=== PATIENT | male | born 1955 | race Caucasian/White ===

== ENCOUNTER 2018-04-29 01:22 | Inpatient (IN) | payer OTHER, MEDICAID ==
[~2018-04-29] VITALS: Ht 177.8 cm; Wt 72.6 kg
--- NOTE | 2018-04-29 02:12 | NUR ---
PT BIB [facility] 88 WITH A C/O DIZZINESS. PT WAS TRIAGED AND TAKEN TO ROOM #9. PT WAS ABLE TO AMBULATE FROM THE EMS GURNEY TO THE ER GURNEY. PT STOOD AT THE BEDSIDE WHILE I EMPTIED HIS GUARDADO BAG. APPROX 600 ML DARK URINE OUTPUT NOTED. PT REC'D WARM BLANKETS.
[2018-04-29] MEDS ORDERED: AMPICILLIN TRIHYDRATE 250 MG CAPSULE PO STA (02:13)
--- NOTE | 2018-04-29 02:13 | NUR ---
AMPICILLIAN NOT AVAILABLE PO IN OUR [facility]. AWARE AND ORDER CANCELLED. PT TOOK HIS OWN AMPICILLAN. DR. FRANKLIN AWARE.
--- NOTE | 2018-04-29 02:45 | NUR ---
PT REFUSED CT.
[2018-04-29] MEDS ORDERED: POTASSIUM CHLORIDE 20 MEQ TAB.PRT.SR PO ONE ×2 (03:23→03:31)
--- NOTE | 2018-04-29 03:25 | NUR ---
PT REC'D 325MG ASPIRIN PO AND ONLY 20 MEQ KCL PO. PT REFUSED THE OTHER [address] FRANKLIN IS AWARE.
[2018-04-29] MEDS ORDERED: ASPIRIN 325 MG TABLET ONE (03:31)
--- NOTE | 2018-04-29 03:42 | NUR ---
DR FRANKLIN AWARE THAT PT REFUSED CT.
[2018-04-29 03:53] LABS: BASOPHILS % (AUTO) 0.1 % (0.0-2.0); BILIRUBIN,DIRECT 0.1 mg/dL (0.0-0.2); BILIRUBIN,TOTAL 0.5 mg/dL (0.2-1.0); CALCIUM, SERUM 8.7 mg/dL (8.5-10.1); CREATININE 1.2 mg/dL (0.6-1.3); EOSINOPHILS % (AUTO) 3.1 % (0.0-6.0); HEMATOCRIT 42 % (39-51); HEMOGLOBIN 14.1 g/dL (13.5-17.5); LYMPHOCYTES # (AUTO) 0.6 /CMM (0.8-4.8); LYMPHOCYTES % (AUTO) 8.2 % (20.0-44.0); MEAN CORPUSCULAR HGB CONC 33 g/dl (31.0-36.0); MEAN CORPUSCULAR VOLUME 100 fL (80-96); MONOCYTES # (AUTO) 0.3 /CMM (0.1-1.30); MONOCYTES % (AUTO) 4.4 % (2.0-12.0); NEUTROPHILS # (AUTO) 6.3 /CMM (1.8-8.9); NEUTROPHILS % (AUTO) 84.2 % (43.0-81.0); PLATELET COUNT (AUTO) 141 /CMM (150-450); POTASSIUM 3.6 mmol/L (3.5-5.1); RDW COEFFICIENT OF VARIATION 13.6 (11.5-15.0); RED BLOOD CELL COUNT(AUTO) 4.22 MIL/uL (4.5-6.0); TOTAL PROTEIN, SERUM 5.9 g/dL (6.4-8.2); TROPONIN I 0.188 ng/mL (0.00-0.056); WHITE BLOOD COUNT (AUTO) 7.5 K/uL (4.3-11.0)
[2018-04-29 04:15] LABS: INR 0.97 (0.87-1.13)
[2018-04-29] MEDS ORDERED: FURO-144 PO (05:00)
--- NOTE | 2018-04-29 05:00 | NUR ---
PT REFUSED TO BE TRANSFERRED TO [facility]. DR. FRANKLIN IS ON THE PHONE WITH NICOLE CAPELLAN. DR. FRANKLIN IS AWARE.
[2018-04-29] MEDS ORDERED: MORPHINE SULFATE INJ 2 MG/ML DISP.SYRIN IV PRN (05:30)
[2018-04-29] MEDS ORDERED: ONDANSETRON HCL/PF 4 MG/2 ML VIAL IVP PRN ×2 (05:30→06:00)
[2018-04-29] MEDS ORDERED: ACETAMINOPHEN 325 MG TABLET PO PRN ×2 (05:30→06:00)
[2018-04-29] MEDS ORDERED: MAGNESIUM HYDROXIDE 30 ML UDC PO PRN ×2 (05:30→06:00)
[2018-04-29] MEDS ORDERED: TEMAZEPAM 15 MG CAPSULE PO PRN ×2 (05:30→06:00)
[2018-04-29] MEDS ORDERED: HYDROCODONE/APAP 5/325MG 1 EACH TABLET PO PRN ×2 (05:30→06:00)
[2018-04-29] MEDS ORDERED: MAG HYDROX/AL HYDROX/SIMETH 30 ML UDC PO PRN ×2 (05:30→06:00)
--- NOTE | 2018-04-29 05:32 | NUR ---
PT IS BEING ADMITTED HERE. Delfin [facility]- IS ADMITTING.
--- NOTE | 2018-04-29 05:54 | NUR ---
CALLING REPORT TO TELE NURSE.
--- NOTE | 2018-04-29 05:55 | NUR ---
PT IS GOING TO 310-1
[2018-04-29] MEDS ORDERED: MORPHINE SULFATE INJ 4 MG/ML DISP.SYRIN IV PRN (06:00)
--- NOTE | 2018-04-29 06:00 | NUR ---
REPORT GIVEN TO CHERELLE CHRISTINE/CHG
[2018-04-29] MEDS ORDERED: AMPI500C11 PO (06:01)
[2018-04-29 06:10] LABS: MAGNESIUM 1.9 mg/dL (1.8-2.4); PHOSPHORUS 3.8 mg/dL (2.5-4.9)
--- NOTE | 2018-04-29 06:26 | NUR ---
RECEIVED MELODY WHITING DENIAL NOTICE FROM [facility], PROVIDED PT A COPY TO READ AND ONE IN PT CHART. PT REFUSED COPT OF NOTICE. RISK AND BENEFITS EXPLAINED X3. PT STRONGLY REFUSED " I WILL NOT TAKE IT/ READ IT BECAUSE ITS USELESS, THEY ALMOST KILLED ME BY DISCHARGING ME EARLIER"
--- NOTE | 2018-04-29 06:26 | NUR ---
PT REQUESTED THAT THE IV RESCUE STARTED BE D/C'D AND A NEW ONE STARTED. 20G IV STARTED BY RESCUE removed. Catheter intact and site benign. Pressure and 4x4 applied to site. No bleeding noted. 20G IV STARTED IN LFA.
--- NOTE | 2018-04-29 06:29 | NUR ---
SHONDA, FROM ADMITTING, IS AT THE BEDSIDE SPEAKING TO THE PT ABOUT THE COVERAGE FOR THE HOSPITAL STAY.
--- NOTE | 2018-04-29 06:54 | NUR ---
PT IS BEING ADMITTED.
--- NOTE | 2018-04-29 07:20 | NUR ---
RN NOTES PT WAS BROUGHT UP TO THE FLOOR FROM ER. PT IS ALERT AND ORIENTED X4, ABLE TO AMBULATE TO THE BED. PT ON RA, RESPIRATIONS ARE EVEN AND UNLABORED. NO SIGNS OF DISTRESS NOTED. SAFETY MEASURES ARE IN PLACE, CALL LIGHT IS IN REACH. WILL CONTINUE TO MONITOR.
[2018-04-29 08:00] VITALS: BP 111/75
--- NOTE | 2018-04-29 08:00 | NUR ---
RN NOTES PT IS REFUSING TO HAVE HOME MEDICATIONS SENT TO PHARMACY. CARTON FILLING MACHINE OPERATOR AND HOSPITALIST MADE AWARE.
[2018-04-29] MEDS ORDERED: ATORVASTATIN 10 MG TABLET PO SCH (09:00)
[2018-04-29] MEDS ORDERED: CARVEDILOL 6.25 MG TABLET PO SCH (09:00)
[2018-04-29] MEDS ORDERED: ENOXAPARIN SODIUM 80 MG/0.8 ML DISP.SYRIN SQ SCH (09:00)
[2018-04-29] MEDS ORDERED: AMPICILLIN TRIHYDRATE 250 MG CAPSULE PO SCH (09:00)
[2018-04-29 09:29] LABS: THYROID STIMULATING HORMONE 2.613 uIU/mL (0.358-3.74)
[2018-04-29] MEDS ORDERED: GLYCERIN ADULT 1 SUPP.RECT RC PRN (13:30)
[2018-04-29] MEDS ORDERED: NA PHOS,M-B/NA PHOS,DI-BA 1 EA ENEMA RC PRN (14:30)
[2018-04-29] MEDS: AMPICILLIN TRIHYDRATE 250 MG CAPSULE PO SCH ×2 (14:33→16:51)
[2018-04-29 16:00] VITALS: BP 113/71
--- NOTE | 2018-04-29 18:32 | NUR ---
RN NOTES PT IS AWAKE AND ALERT, SITTING IN HIS ROOM. PT ON RA, RESPIRATIONS ARE EVEN AND UNLABORED. IV ON L WRIST INTACT AND SL. NO SIGNS OF DISTRESS NOTED, AND ALL PT NEEDS MET. SAFETY MEASURES ARE IN PLACE, CALL LIGHT IS IN REACH. WILL ENDORSE TO MANAGER TELEMARKETING RN FOR CONTINUITY OF CARE.
--- NOTE | 2018-04-29 18:56 | NUR ---
RN NOTES PT REFUSING TO HAVE TELEMETRY LEADS ON AT THIS TIME. WILL CONTINUE TO ENCOURAGE PT TO HAVE LEADS PUT BACK ON AND NOTIFY SUPERVISOR TREE TRIMMING RN.
--- NOTE | 2018-04-29 19:40 | NUR ---
FINANCIAL SALES REPRESENTATIVE INITIAL NOTE PT IS SITTING UP IN CHAIR AT BEDSIDE, A/O X3 ABLE TO MAKE NEEDS KNOWN. NO SIGNS OF SOB OR DISTRESS, BREATHING EVENLY AND UNLABORED ON RA. IV ACCESS IS INTACT AND PATENT. GUARDADO CATHETER IS INTACT. PT NOW ALLOWED ME TO APPLY LEADS, SR 97 ON TELE MONITOR. CALL LIGHT IS WITHIN REACH. WILL CONTINUE TO MONITOR PT
[2018-04-29 20:00] VITALS: BP 98/67
--- NOTE | 2018-04-29 21:30 | NUR ---
NEWS CLERK NOTE PT IS STATING THAT HE IS GOING TO LEAVE. HE IS REQUESTING TO SPEAK TO THE FOUNDER AND CHIEF TECHNICAL OFFICER AND WANTS A LASIX DRIP AT THIS TIME. EXPLAINED TO THE PATIENT THAT THERE AND NO ORDERS AT THIS TIME AND THE FOUNDER AND CHIEF TECHNICAL OFFICER IS NOT THE RIPSHEAR OPERATOR DOCTOR DARIEN. CHARGE NURSE ALSO EXPLAINED TO THE PT THAT WE CAN NOT JUST GIVE HIM A DRIP WITHOUT MD APPROVAL. EDUCATED THE PT IN THE NEED TO STAY AND CONTINUE WITH THE CARE. PT IS UPSET AND WANTS TO LEAVE AMA.
--- NOTE | 2018-04-29 22:10 | NUR ---
CHIEF BANK EXAMINER NOTE PT WANTS TO LEAVE AMA, DOES NOT HAVE A RIDE. ASKED THE PT IF HE HAS SOMEONE THAT COULD PICK HIM UP, PT SAID NO. ASKED PT IF HE IS ABLE TO CALL A CAB, PT SAID NO. EXPLAINED TO PT IT WOULD BE UNSAFE TO WALK HOME AT THIS TIME AND THAT IT WOULD BE BEST TO WAIT UNTIL THE MORNING TO COORDINATE A RIDE, PT REFUSED AND CONTINUED TO WALK OUT THE DOOR TO THE ELEVATOR. AMA PAPERWORK WAS SIGNED, BELONGINGS LIST WAS SIGNED,ID BAND WAS REMOVED, IV WAS REMOVED. PT REFUSED TO HAVE HIS GUARDADO CATHETER REMOVED. BLOW MOLD TECHNICIAN ACCOMPANIED HIM OUT OF THE HOSPITAL.
[2018-04-30] MEDS ORDERED: ASPIRIN 81 MG TAB.CHEW PO SCH ×2 (09:00)
== END 2018-04-29 22:10 | disposition left against medical advice (07) | DRG 281 ==
LOC: ER 01:24 → TELE 06:45
PROVIDERS: ADMIT Nurse Practitioner Acute Care; ATTEND Nurse Practitioner Acute Care
DX: I21.4 Non-ST elevation (NSTEMI) myocardial infarction (principal); I50.32 Chronic diastolic (congestive) heart failure; I25.10 Atherosclerotic heart disease of native coronary artery without angina pectoris; Z95.5 Presence of coronary angioplasty implant and graft; Z95.1 Presence of aortocoronary bypass graft; K64.9 Unspecified hemorrhoids
CPT/HCPCS: 36415; 71045-TC; 80048-TC; 80061-TC; 80076-TC; 83735-TC; 83880; 84100-TC; 84439-TC; 84443-TC; 84484-TC; 85025-TC; 85730-TC; 87081-TC; 93307-TC; A4606; Z7610

== ENCOUNTER 2018-04-30 11:07 | Emergency (ER) | payer OTHER, MEDICAID ==
[~2018-04-30] VITALS: Ht 177.8 cm; Wt 77.1 kg
[~2018-04-30 11:07] MED LIST: AMPI500C11 PO; FURO-144 PO
--- NOTE | 2018-04-30 11:20 | NUR ---
[id number] FROM HOME: DYSURIA, PENILE PAIN. AMA'ED YESTERDAY FROM HOSPITAL. NAD NOTED, VSS, RESP EVEN AND UNLABORED, PT WAS PUT ON MONITOR, WAITING FOR MD CHAN.
[2018-04-30] MEDS ORDERED: LIDOCAINE 2% JEL UROJET 10 ML MM ONE (12:03)
[2018-04-30] MEDS ORDERED: ONDANSETRON HCL/PF 4 MG/2 ML VIAL ONE (12:17)
[2018-04-30] MEDS ORDERED: MORPHINE SULFATE INJ 4 MG/ML DISP.SYRIN ONE (12:18)
[2018-04-30] MEDS ORDERED: LIDOCAINE SOLN 4% 50 ML BOTTLE TP ONE (12:30)
[2018-04-30] MEDS ORDERED: MORPHINE SULFATE INJ 2 MG/ML DISP.SYRIN IV ONE (12:30)
[2018-04-30] MEDS ORDERED: ONDANSETRON HCL/PF 4 MG/2 ML VIAL IV ONE (12:30)
[2018-04-30 12:50] LABS: BASOPHILS # (AUTO) 0.1 /CMM (0.0-0.2); BASOPHILS % (AUTO) 0.9 % (0.0-2.0); EOSINOPHILS % (AUTO) 2.3 % (0.0-6.0); HEMATOCRIT 42 % (39-51); HEMOGLOBIN 14.3 g/dL (13.5-17.5); LYMPHOCYTES # (AUTO) 0.9 /CMM (0.8-4.8); LYMPHOCYTES % (AUTO) 10.5 % (20.0-44.0); MEAN CORPUSCULAR HGB CONC 34 g/dl (31.0-36.0); MEAN CORPUSCULAR VOLUME 95 fL (80-96); MONOCYTES # (AUTO) 0.4 /CMM (0.1-1.30); MONOCYTES % (AUTO) 4.8 % (2.0-12.0); NEUTROPHILS # (AUTO) 6.7 /CMM (1.8-8.9); NEUTROPHILS % (AUTO) 81.5 % (43.0-81.0); PLATELET COUNT (AUTO) 154 /CMM (150-450); RDW COEFFICIENT OF VARIATION 12.8 (11.5-15.0); RED BLOOD CELL COUNT(AUTO) 4.42 MIL/uL (4.5-6.0); WHITE BLOOD COUNT (AUTO) 8.3 K/uL (4.3-11.0)
[2018-04-30] MEDS ORDERED: LIDOCAINE 2% 50 ML MDV IJ ONE (13:00)
[2018-04-30] MEDS ORDERED: OLANZAPINE 10 MG VIAL IM ONE ×2 (13:00→13:01)
[2018-04-30] MEDS ORDERED: LORAZEPAM INJ 2 MG/ML VIAL IM ONE (13:00)
[2018-04-30] MEDS ORDERED: LORAZEPAM INJ 2 MG/ML VIAL ONE (13:02)
[2018-04-30 13:04] LABS: INR 0.96 (0.85-1.15)
[2018-04-30 13:09] LABS: CREATININE 1.1 mg/dL (0.6-1.3); POTASSIUM 3.9 mmol/L (3.5-5.1); TROPONIN I 0.178 ng/mL (0.00-0.056)
--- NOTE | 2018-04-30 13:30 | NUR ---
PULLED OUT THE CATHETER, PT ANNA. 400ML YELLOWISH URINE OUT. MADE AWARE.
--- NOTE | 2018-04-30 13:45 | NUR ---
URINE SENT TO THE LAB
[2018-04-30 14:20] LABS: APPEARANCE,URINE CLEAR (CLEAR); BILIRUBIN,URINE NEGATIVE (NEGATIVE); BLOOD, URINE 1+ Ery/uL (NEGATIVE); COLOR,URINE YELLOW (YELLOW); KETONES,URINE TRACE (NEGATIVE); LEUKOCYTE ESTERASE ,URINE 1+ (NEGATIVE); NITRITE, URINE NEGATIVE (NEGATIVE); PROTEIN,URINE TRACE mg/dl (NEGATIVE); UGLUCOSE NEGATIVE (NEGATIVE); UROBILINOGEN,URINE 0.2 EU/dL (0.2)
--- NOTE | 2018-04-30 14:27 | NUR ---
Patient is resting comfortably in bed with eyes closed. Easily aroused. VSS
[2018-04-30 14:54] LABS: BACTERIA,URINE 2+ /HPF (None Seen); SQUAMOUS EPITHELIAL CELL,UR 0-2 /HPF (None Seen)
[2018-04-30 14:55] LABS: MUCUS,URINE Few /LPF (None Seen)
[2018-04-30] MEDS ORDERED: IV NS 0.9% 1,000 ML BAG IV ONE (16:00)
--- NOTE | 2018-04-30 16:53 | NUR ---
Patient is resting comfortably in bed with eyes closed. Easily aroused. VSS
--- NOTE | 2018-04-30 17:22 | NUR ---
Joseph adrian in [facility] - 04/30/18 at 1723 by [place] [id number] TELE
--- NOTE | 2018-04-30 20:54 | NUR ---
CALLED [facility] AND SPOKE TO MANAGER SPECIALTY PILO NOLAND MD TO CALL.
[2018-04-30 21:29] VITALS: BP 103/60
== END 2018-04-30 22:07 | disposition left against medical advice (07) ==
LOC: ER 11:08
DX: T83.098A Other mechanical complication of other urinary catheter, initial encounter (principal); R45.1 Restlessness and agitation; I50.9 Heart failure, unspecified; I25.810 Atherosclerosis of coronary artery bypass graft(s) without angina pectoris; Z95.1 Presence of aortocoronary bypass graft; Z60.2 Problems related to living alone
CPT/HCPCS: 36415; 80048; 81001; 84484; 85025; 85730; 87086; 93005; 96361; 96372 ×2; 96374; 99285; A4606; J2060; J2270; J2405; J3490 ×3; J7030; Z7610; 81000-TC